=== PATIENT | female | born 1960 | race Hispanic/Latino ===

== ENCOUNTER 2024-12-01 15:34 | Emergency (ER) | payer BC, OTHER ==
[~2024-12-01] VITALS: Ht 152.4 cm; Wt 90.3 kg
--- NOTE | 2024-12-01 16:25 | ERN ---
ED Note History of Present Illness Stated Complaint: ABSCESS, POSSIBLE BARTHOLIN CYST Chief Complaint: Abscess Time Seen by MD: 15:39 Dictation: PATIENT IS A 64-YEAR-OLD FEMALE HERE WITH HER DAUGHTER WITH COMPLAINTS OF A RIGHT LABIAL ABSCESS/SWELLING SHE HAS HAD FOR ONE WEEK. NO NAUSEA VOMITING NO FEVER NO CHILLS. SHE STATES SHE GOES TO [facility] HOWEVER HAS NOT BEEN TO SEE HER DOCTOR. Allergies: Coded Allergies: No Known Allergies (Unverified Allergy, Unknown, 12/01/24) Past Medical History Past Medical History: Diabetes-Type II Surgical History: Surgical History Other: EYE History: Not Applicable RN Note Reviewed/Agreed w/PFSH: Yes Review of System Dictation CONSTITUTIONAL: NEGATIVE EXCEPT FOR HPI HEAD/FACE: NEGATIVE EXCEPT FOR HPI EENT: NEGATIVE EXCEPT FOR HPI RESPIRATORY: NEGATIVE EXCEPT FOR HPI GASTROINTESTINAL/ABDOMINAL: NEGATIVE EXCEPT FOR HPI GENITOURINARY: NEGATIVE EXCEPT FOR HPI RIGHT LABIAL SWELLING ERYTHEMA MUSCULOSKELETAL: NEGATIVE EXCEPT FOR HPI INTEGUMENTARY: NEGATIVE EXCEPT FOR HPI NEUROLOGICAL/PSYCH: NEGATIVE EXCEPT FOR HPI HEMATOLOGIC/LYMPHATIC: NEGATIVE EXCEPT FOR HPI ALL SYSTEMS NEGATIVE, EXCEPT NOTED ABOVE. 13 POINT REVIEW OF SYSTEMS ASSESSED AND ALL NEGATIVE EXCEPT FOR ABOVE. Initial Vital Sign VS Vital Signs Date Time Temp Pulse Resp B/P (MAP) Pulse Ox O2 Delivery O2 Flow Rate FiO2 12/01/24 15:37 98.2 96 16 143/66 97 Room Air* 0 21 Physical Exam Dictation VITAL SIGNS REVIEWED JI RN AT BEDSIDE WITH THE EXAM GENERAL APPEARANCE: ALERT, ORIENTED X 3, MILD ACUTE DISTRESS, WELL DEVELOPED, NOURISHED. HEAD AND FACE: NON-TRAUMATIC. EYES: PERRL, PINK CONJUNCTIVAS, EYELID NO TRAUMA, ANTERIOR CHAMBER WITH ARCUS SENILIS. EARS: PINNAS INTACT AND NO SIGNS OF TRAUMA OR ERYTHEMA EAR CANALS CLEAR AND NO DISCHARGE TM NO ERYTHEMA NOSE: NO DISCHARGE, NO BLEEDING. OROPHARYNX: MOUTH NORMAL, TONGUE PINK, PHARYNX CLEAR,NO ERYTHEMA, TONSILS NO EXUDATES, NO ABSCESSES NOTED, MUCOUS MEMBRANE MOIST NECK: SUPPLE, NON-TENDER, NO THYROMEGALY, NO MASSES, NO JVD, NO BRUITS BREAST:DEFERRED CHEST:NO TENDERNESS, NO CREPITUS, NO PARADOXICAL MOVEMENT, NO RETRACTIONS LUNGS:CLEAR, WELL-VENTILATED, SYMMETRIC, NO RALES, NO WHEEZING, NO RHONCHI, NO STRIDOR, GOOD BREATH SOUNDS BILATERALLY HEART: REGULAR RATE, REGULAR RHYTHM, NO MURMUR, NO GALLOPS VASCULAR: NO PERIPHERAL EDEMA, ABDOMEN: SOFT, POSITIVE BOWEL SOUNDS, NONDISTENDED, NO GUARDING, NONTENDER, NO REBOUND, NO MASSES NO HEPATOMEGALY, NO SPLENOMEGALY, NO MUNOZ'S SIGN, NO HERNIAS. RECTAL: DEFERRED GENITAL: RIGHT LATERAL LABIAL SWELLING ERYTHEMA. NO DRAIN NEUROLOGICAL: NORMAL SPEECH, MOTOR FUNCTION INTACT, SENSORY FUNCTION INTACT MUSCULOSKELETAL: NECK NONTENDER, FULL RANGE OF MOTION, BACK NONTENDER, FULL RANGE OF MOTION, EXTREMITIES: NONTENDER, FULL RANGE OF MOTION SKIN: COLOR PINK, DRY, NO TURGOR, NO RASH, NO LACERATIONS, NO ABRASIONS, NO CONTUSIONS. LYMPHATIC: DEFERRED Results (Laboratory/Radiology) Labs Reviewed?: Yes ED Course ED Course Orders Procedure Category Date Status Time Lidocaine Hcl 1% 20ml PHA 12/01/24 Complete Vial (Lidocaine Hc 16:30 Acetaminophen With PHA 12/01/24 Complete Codeine (Tylenol-Code 16:30 Clindamycin 150mg Cap PHA 12/01/24 Complete (Cleocin 150mg Cap 16:30 Aerobic Culture KELBY 12/01/24 Logged 16:21 Current Medications Medications (Trade) Dose Ordered Sig/Janette Route PRN Reason Start Time Stop Time Status Last Admin Dose Admin Acetaminophen/ Codeine Phosphate (TYLenol-coDEINE TAB) 2 tab ONCE ONCE PO 12/01/24 16:30 12/01/24 16:33 DC 12/01/24 16:36 Clindamycin HCl (Cleocin 150mg Cap) 600 mg ONCE ONCE PO 12/01/24 16:30 12/01/24 16:33 DC 12/01/24 16:36 Lidocaine HCl (Lidocaine HCl 1% 20ml Vial) 10 ml ONCE ONCE INJ 12/01/24 16:30 12/01/24 16:33 DC 12/01/24 16:37 Vital Signs Date Time Temp Pulse Resp B/P (MAP) Pulse Ox O2 Delivery O2 Flow Rate FiO2 12/01/24 15:37 98.2 96 16 143/66 97 Room Air 0 12/01/24 15:37 98.2 96 16 143/66 97 Room Air* 0 21 1715/I AND D PERFORMED OF RIGHT LATERAL LABIAL ABSCESS. CULTURES OBTAINED PAIN WAS MANAGED CLINDAMYCIN WAS INITIATED WITH 600 MG DISCHARGED HOME WITH WOUND CARE INSTRUCTIONS TOLD TO SEE HER PRIMARY CARE DOCTOR Medical Decision Making MDM MEDICAL DECISION-MAKING WAS BASED ON EMPIRIC TREATMENT FOR RIGHT LATERAL ABSCESS I AND D WAS PERFORMED CULTURES WERE OBTAINED PATIENT TOLERATED WELL GIVEN WOUND CARE INSTRUCTIONS Procedure Procedure Dictation: 1710/PROCEED EXPLAINED TO PATIENT SHE AGREED TO PROCEED 3 X 3 CM ABSCESS TO LEFT LATERAL LABIAL AREA CLEANSED THOROUGHLY WITH WOUND CLEANSER 5 ML 1% LIDOCAINE PLAIN FOR LOCAL ANESTHESIA USE 11. SCALP, MADE 3 CM INCISION DRAINED APPROXIMATELY 10-12 ML PURULENT DRAINAGE LOCULATIONS EXPLORED, CULTURES WERE OBTAINED NO PACKING AT THIS TIME. ABSCESS MARKEDLY REDUCED IN SIZE AND TENSENESS AFTER TREATMENT PATIENT TOLERATED WELL DX & DISP Disposition: Discharge Departure Impression: Primary Impression: Abscess of right groin Condition: Stable Scripts Ibuprofen (Ibuprofen 800 mg Tab) 800 Mg Tab 800 MG PO Q8H PRN for fever or pain, #30 TAB 0 Refills Prov: LESLY JOHNSON [employer] 12/01/24 Clindamycin HCl (Clindamycin HCl) 300 Mg Capsule 1 CAP PO QID for 10 Days, #40 CAP 0 Refills Prov: LESLY JOHNSON NP 12/01/24 Additional Instructions: FOLLOW-UP WITH PRIMARY CARE PROVIDER IN 1 TO 2 DAYS. TAKE MEDICATIONS DIRECTED HERE IN THE EMERGENCY ROOM. OKAY TO CONTINUE HOME MEDICATIONS UNLESS OTHERWISE DISCUSSED DURING YOUR VISIT IN THE EMERGENCY ROOM TODAY. RETURN TO YOUR NEAREST EMERGENCY ROOM IF SYMPTOMS WORSEN OR IF THERE IS NO IMPROVEMENT. CALL 911 IF YOU NEED IMMEDIATE ASSISTANCE. TAKE TYLENOL OR MOTRIN [id number] NEEDED AND IF NO CONTRAINDICATIONS ARE PRESENT. INCREASE ORAL HYDRATION. A WOUND CULTURE OR URINE CULTURE WAS ORDERED HERE IN THE EMERGENCY ROOM DEPARTMENT PLEASE FOLLOW-UP WITH PRIMARY CARE PROVIDER AND ADVISE THEM TO GET REPEAT PORTS FROM OUR FACILITY. IF YOU HAD ANY ANGELITO WRAP/SPLINTS THAT WERE APPLIED HERE, PLEASE DO NOT REMOVE THEM UNTIL YOU SEE YOUR PRIMARY CARE OR SPECIALTY. OKAY TO TAKE A SHOWER THEN DRY AREA THOROUGHLY TO GROIN AND REAPPLY 4 X 4 DRESSINGS. TAKE ANTIBIOTICS DIRECTED UNTIL GONE, TAKE TWO CAPSULES THE 1ST DOSE OF YOUR ANTIBIOTICS. SEE YOUR PRIMARY CARE DOCTOR FOR FOLLOW UP WITHOUT FAIL FOR MANAGEMENT AT [facility] TOMORROW OR THE NEXT DAY Referrals: SELF,REFERRAL (PCP) Time of Disposition: 17:19 I have reviewed the case, and I agree with, Diagnosis and Plan LESLY JOHNSON NP Dec 01, 2024 16:25
[2024-12-01] MEDS: CLINDAMYCIN 150 MG CAP PO ONE (16:36)
[2024-12-01] MEDS: acetaMINOPHEN WITH coDEINE 1 TAB TAB PO ONE (16:36)
[2024-12-01] MEDS: LIDOCAINE HCL 1% 20 ML VIAL INJ ONE (16:37)
[2024-12-01] MEDS ORDERED: IBUP-2077 PO (17:21)
[2024-12-01] MEDS ORDERED: CLIN-141 PO (17:21)
[2024-12-01 17:28] VITALS: BP 143/65; PULSE 83; RESP 16; TEMP 97.8; O2SAT 99
== END 2024-12-01 17:33 | disposition home or self-care (01) ==
LOC: EDH 15:34
DX: L02.214 Cutaneous abscess of groin (principal); E11.9 Type 2 diabetes mellitus without complications
CPT/HCPCS: 56405; 87070; 99284